=== PATIENT | male | born 1960 | race Caucasian/White ===

== ENCOUNTER 2017-09-25 03:31 | Emergency (ER) | payer SELFPAY ==
[~2017-09-25] VITALS: Ht 185.4 cm; Wt 111.4 kg
[2017-09-25 08:13] VITALS: BP 115/75; PULSE 66; TEMP 98
== END 2017-09-25 08:13 | disposition home or self-care (01) ==
LOC: COL.ER 03:31
DX: T18.128A Food in esophagus causing other injury, initial encounter (principal)
CPT/HCPCS: J2250; J3010; J7030

== ENCOUNTER 2017-11-30 06:02 | Day surgery (SDC) | payer SELFPAY ==
[~2017-11-30] VITALS: Ht 190.5 cm; Wt 116.8 kg
[2017-11-30 06:20] VITALS: BP 101/67; PULSE 79; TEMP 98.2
[2017-11-30] MEDS ORDERED: PRIL40 PO (06:23)
[2017-11-30 07:35] VITALS: BP 118/84; PULSE 74; TEMP 98.1
[2017-11-30 07:50] VITALS: BP 122/74; PULSE 73
[2017-11-30 08:05] VITALS: BP 126/76; PULSE 74
[2017-11-30 12:21] VITALS: BP 140/90; PULSE 79
== END 2017-11-30 08:27 | disposition home or self-care (01) ==
LOC: SDCO 06:02
DX: K22.2 Esophageal obstruction (principal); K21.9 Gastro-esophageal reflux disease without esophagitis; R13.10 Dysphagia, unspecified
CPT/HCPCS: J2250; J3010; J7030